=== PATIENT | female | born 1960 | race Caucasian/White ===

== ENCOUNTER → 2023-07-08 09:01 | Outpatient (CLI) | payer BC, SELFPAY ==
--- NOTE | ~2023-07-08 | MR_ITS ---
MRI of the lumbar spine Clinical History: Back pain Technique: Axial T2-weighted images, and sagittal T1-weighted, T2-weighted, and T2 fat-sat images wer e acquired. Findings: There is 12 mm anterolisthesis of L5 over S1, with severe degenerative change and possible partial fusion across the L5-S1 level disc space. There are underlying L5 pars interarticularis defec ts. No other fracture or subluxation seen. No suspicious bone marrow signal abnormality seen. At L1-L2 there is no disc bulge or herniation seen. No spinal canal stenosis or neural foraminal narr owing at these levels. At L2-L3, there is minimal disc bulge and mild facet hypertrophy. No spinal canal stenosis or neural foraminal narrowing. At L3-L4, there is no disc bulge or herniation. There is mild facet arthropathy. No spinal canal sten osis or neural foraminal narrowing. At L4-L5, there is diffuse disc bulge with advanced facet arthropathy. No ollie central canal stenosi s. There is moderate to advanced right neural foraminal narrowing and moderate left neural foraminal narrowing. At L5-S1, there is advanced spinal canal stenosis/thecal sac compression. There is probable severe bi lateral neural foraminal narrowing, right worse than left. Paravertebral soft tissues are unremarkable. Impression: 12 mm anterolisthesis of L5 over S1 with underlying L5 pars interarticularis defects. Advanced degenerative spondylosis at L4-L5 and L5-S1, as detailed above. Reviewed, dictated and finalized at [facility]. [employer]ER Impression: 12 mm anterolisthesis of L5 over S1 with underlying L5 pars interarticularis de fects. Advanced degenerative spondylosis at L4-L5 and L5-S1, as detailed above.
== END ==
PROVIDERS: PCP Nurse Practitioner Family; Visit Provider Nurse Practitioner Family
DX: M47.26 Other spondylosis with radiculopathy, lumbar region (principal); M54.6 Pain in thoracic spine
CPT/HCPCS: 72148

== ENCOUNTER → 2024-08-23 09:47 | Outpatient (CLI) | payer BC, SELFPAY ==
--- NOTE | ~2024-08-23 | XR_ITS ---
EXAMINATION: XR chest 2V Exam Date/Time: 08/23/2024 10:02 [employer] HISTORY: prod cough x 4 days non smoker Comparison: None. RESULT: Lines, tubes, and devices: None. Lungs and pleura: Clear. Cardiomediastinal silhouette: Unremarkable. Other: No acute osseous or upper abdominal finding. Atherosclerotic abdominal aortic calcifications without evident aneurysm. IMPRESSION: No acute cardiopulmonary process. Reviewed, dictated and finalized at location [facility] TO CHIP [facility]KER
== END ==
LOC: EXPCRAD 09:52
PROVIDERS: PCP Nurse Practitioner Family; Visit Provider Nurse Practitioner Family
DX: R05.9 Cough, unspecified (principal)
CPT/HCPCS: 71046

== ENCOUNTER 2025-07-03 07:30 | Emergency (ER) | payer BC, SELFPAY ==
--- OUTSIDE RECORDS SUMMARY | 2024-01-16 03:00 | XMS_ITS ---
Author Organization [facility] Address [address] [place] [address] Care Team Providers Care Copper Tapper Name Role Phone Migration, Provider Unavailable Unavailable REASON FOR VISIT EMR-Alexei Encounters Encounter Location Date Provider Diagnosis [facility] [address] [place] [address] 01/16/2024 Provider Migration Plan Of Treatment No Information Progress Notes * STARLA DannyeeDOB:1960 ([age] yo F)Acc No.[id number]:01/16/2024 Patient: Basia CHAPA :1960 A ge:63 Y S ex:Female Phone: Address:[address] [place], [address] Subjective: * Chief Complaints: * E MR-Alexei * * Date:
--- OUTSIDE RECORDS SUMMARY | 2024-01-17 03:00 | XMS_ITS ---
Author Organization [facility] Address [address] [place] [address] Care Team Providers Care Hospitality Director Name Role Phone Migration, Provider Unavailable Unavailable REASON FOR VISIT EMR-Alexei Encounters Encounter Location Date Provider Diagnosis [facility] [address] [place] [address] 01/17/2024 Provider Migration Plan Of Treatment No Information Progress Notes * STARLA DannyeeDOB:1960 ([age] yo F)Acc No.[id number]:01/17/2024 Patient: Basia CHAPA :1960 A ge:63 Y S ex:Female Phone: Address:[address] [place], [address] Subjective: * Chief Complaints: * E MR-Alexei * * Date:
--- NOTE | ~2025-07-03 | CT_ITS ---
Basia Vasquez EXAMINATION: CT abdomen pelvis w con COMPARISON: None HISTORY: upper abdominal pain TECHNIQUE: Axial images were obtained through the abdomen, pelvis post administration of IV contrast. Oral contrast was also administered. Coronal reconstruction images were obtained from the axial views. CT scan performed using dose optimization techniques including the following automated exposure control; adjustment of mA and/or kV; use of iterative reconstruction technique. Automatic exposure control was used to reduce radiation dose. Permanent radiation dose record is archived to PACS. FINDINGS: CT abdomen: LUNG BASES: The lung bases are clear. The visualized portions of the heart and pericardium are unremarkable. LIVER: Mild hepatic steatosis. SPLEEN: Unremarkable. KIDNEYS: Right Kidney: Unremarkable. No calculi. No hydronephrosis. Left Kidney: Left kidney midpole simple cyst 2 x 2 cm. ADRENAL GLANDS: Unremarkable. PANCREAS: Unremarkable. GALLBLADDER/BILIARY: Unremarkable. No biliary dilatation. STOMACH AND ESOPHAGUS: Visualized stomach and esophagus within normal limits. BOWEL/MESENTERY: No colitis or diverticulitis. Appendix not identified. Mesentery normal. Small bowel normal. ADENOPATHY/RETROPERITONEUM: No lymphadenopathy. AORTA/VASCULATURE: Normal caliber aorta. FREE FLUID OR FREE AIR: None. CT pelvis: SOLID ORGANS/REPRODUCTIVE: Unremarkable. BLADDER: Within normal limits. OSSEOUS STRUCTURES: Grade 1 anterolisthesis of L5 on S1 with bilateral spondylolytic defects. Fusion noted of the L5-S1 disc space. OVERLYING SOFT TISSUES: Unremarkable. IMPRESSION: 1. No etiology identified to explain the patient's symptoms. Follow-up suggested if symptoms persist. Reviewed, dictated and finalized at location P. ING STATION SUPERVISOR IMPRESSION: 1. No etiology identified to explain the patient's symptoms. Follow-up suggeste d if symptoms persist.
--- OUTSIDE RECORDS SUMMARY | 2025-07-03 07:32 | XMS_ITS | Encounter Summary ---
Author Organization [facility] Healthcare Address [address] [place] [id number] Care Team Providers Care Air Conditioning Manager Name Role Phone Sangeetha Mullins NP Primary Care Provider [phone] Reason for Visit * Reason Onset Date Comments Additional Services Or Orders 06/09/2025 Encounter Details Date Type Department Care Team (Late st Contact Info) Description 06/09/2025 Telephone [facility] Family Medicine [address] [place] [address] Sangeetha Mullins NP [address] [place] [address] Additional Services Or Orders Social History Tobacco Use Types Packs/Day Years Used Date Smoking Tobacco: Former Cigarettes Q uit: 09/13/2020 Smokeless Tobacco: Never PHQ-2 Answer Date Recorded PHQ-2 Total Score (If total score is 3 or more points, staff should administer the PHQ-9) 0 12/01/2024 Comments No Sex and Gender Information Value Date Recorded Sex Assigned at Not on file Legal Sex Female 8:52 AM CDT Gender Identity Not on file Sexual Orientation Not on file documented as of this encounter Miscellaneous Notes * Telephone Encounter - Natacha Evans LPN - 06/13/2025 8:39 AM CDT Patient made aware. * Telephone Encounter - Sybil Patricia MA - 06/13/2025 8:34 AM CDT Placing orders for [facility] * Telephone Encounter - Sangeetha Mullins NP - 06/13/2025 7:17 AM CDT Cbc, cmp, lipid, tsh, A1c, vit d please * Telephone Encounter - Yoly Broderick - 06/09/2025 12:38 PM CDT Additional Services or Orders Type of Service Requested:Labs Reason for Request (e.g. condition/symptom, date of COVID exposure if applicable): Preventative on 06/20/25 Details Regarding Additional Services (e.g. type of home health, type of equipment, type of test, etc.): Blood labs Where will services be performed? (if outside of the practice, facility name, address, phone/fax offacility): [facility] [address] , [place] [address] Additional Comments: None Does message need to be routed? Yes-Action Needed documented in this encounter Plan of Treatment Not on file documented as of this encounter Visit Diagnoses Not on filedocumented in this encounter Additional Health Concerns Infection Onset Date Last Indicated Resolved Time COVID: Suspected 06/28/2025 06/28/2025 06/28/2025 1:26 PM [employer]IC documented as of this encounter Care Teams Air Conditioning Manager Relationship Specialty Start Date End Date Sangeetha Mullins NP [address] [place] [address] PCP - General Internal Medicine 06/09/23 documented as of this encounter
--- OUTSIDE RECORDS SUMMARY | 2025-07-03 07:33 | XMS_ITS | Clinical Summary ---
Author Organization [facility] Address [address] [address] Phone Care Team Providers Care Dimensional Integration Engineer Name Role Phone Sangeetha Mullins NP Primary Care Provider [phone] Allergies Active Allergy Reactions Criticality Noted Date Comments Opioids - Morphine Analogues Other (See comments) Low 07/05/2024 vomiting Medications flunisolide (NASALIDE) 25 mcg (0.025 %) spray,non-aerosol 2 (two) times a day Active tiZANidine (ZANAFLEX) 4 mg tablet TAKE 1 TABLET(4MG)BY ORAL ROUTE AT BEDTIME 11/25/19 24 Active fluticasone propionate (FLONASE) 50 mcg/actuation nasal sprayIndications:S easonal allergies Administer 2 sprays into each nostril daily 3 each 4 12/24/19 24 Active fluticasone propion-salmeteroL (ADVAIR HFA) 230-21 mcg/actuation inhaler Inhale 2 puffs 2 (two) times a day Rinse mouth with water after use. Do not swallow. 1 each 1 04/05/20 24 Active ipratropium-albute roL (DUO-NEB) 0.5-2.5 mg/3 mL nebulizer solutionIndication s:Acute cough Take 3 mL by nebulization 4 (four) times a day as needed for wheezing or shortness of breath 90 mL 11 08/23/20 24 Active albuterol-budesoni de (Airsupra) 90-80 mcg/actuation HFA aerosol inhalerIndications :bronchospasm prevention with asthma Inhale 2 Inhalations 4 (four) times a day as needed (wheezing) 32.1 g 2 12/02/19 25 Active ibuprofen (ADVIL,MOTRIN) 800 mg tabletIndications: Chronic bilateral low back pain without sciatica Take 1 tablet (800 mg total) by mouth nightly 90 tablet 1 12/02/19 25 Active levocetirizine (XYZAL) 5 mg tabletIndications: Allergic Rhinitis Take 1 tablet (5 mg total) by mouth daily 100 tablet 1 12/02/19 25 Active fluticasone propion-salmeteroL (ADVAIR DISKUS) 250-50 mcg/dose diskus inhalerIndications :Moderate persistent asthma without complication INHALE 1 PUFF 2 TIMES A DAY RINSE MOUTH WITH WATER AFTER USE. DO NOT SWALLOW. 180 each 1 03/03/[address] (PROTONIX) 40 mg EC tabletIndications: Gastroesophageal reflux disease without esophagitis TAKE 1 TABLET BY MOUTH EVERY DAY 90 tablet 1 03/10/20 25 Active metoprolol XL (TOPROL-XL) 50 mg extended release tabletIndications: Hypertension, essential TAKE 1 TABLET BY MOUTH EVERY DAY 90 tablet 1 03/10/20 25 Active simvastatin (ZOCOR) 40 mg tabletIndications: Mixed hyperlipidemia TAKE 1 TABLET BY MOUTH EVERY DAY AT NIGHT 90 tablet 1 03/10/20 25 Active montelukast (SINGULAIR) 10 mg tabletIndications: Seasonal allergies TAKE 1 TABLET BY MOUTH EVERY DAY AT NIGHT 90 tablet 1 03/10/20 25 Active levothyroxine (SYNTHROID) 125 mcg tabletIndications: Acquired hypothyroidism Take 1 tablet (125 mcg total) by mouth daily 90 tablet 4 06/28/20 25 Active predniSONE (DELTASONE) 10 mg tabletIndications: Acute cough Take 1 tablet (10 mg) by mouth 4 (four) times a day for 5 days 20 tablet 06/28/20 25 025 Active levothyroxine (SYNTHROID) 75 mcg tabletIndications: Acquired hypothyroidism TAKE 1 TABLET (75 MCG TOTAL) BY MOUTH LENS GENERATOR BEFORE BREAKFAST 90 tablet 1 03/10/20 25 025 Discontin ued(Alter cha therapy) Active Problems Problem Noted Date Diagnosed Date Gastroesophageal reflux disease without esophagi tis 12/01/2024 Overview (12/01/2024): Continue Protonix as directed. Monitor dietary intake Acute cough 08/23/2024 Cervical cancer screening 01/15/2024 Seasonal allergies 01/05/2024 Overview (01/05/2024): Use Flonase 1 spray twice daily as directed. Singulair and Xyzal as directed Right wrist pain 01/05/2024 Overview (01/05/2024): Use referral to see hand for evaluation of right wrist pain and possible carpal tunnel BMI 29.0-29.9,adult 06/09/2023 Encounter for vaccination 06/09/2023 Hypertension, essential 06/09/2023 Mixed hyperlipidemia 06/09/2023 Chronic pain of both knees 06/09/2023 Moderate persistent asthma without complication 06/09/2023 Acquired hypothyroidism 06/09/2023 Encounters Date Type Department Care Team Description 06/30/2025 Nurse Triage [address] [place] [phone] Sangeetha Mullins NP 06/28/2025 1:00 PM METAL FABRICATOR APPRENTICE Office Visit [address] [place] [address] Sangeetha Mullins NP Acute cough (Primary Dx); BMI 29.0-29.9,adult; Acquired hypothyroidism 06/13/2025 Orders Only [address] [place] [phone] Sangeetha Mullins NP Mixed hyperlipidemia (Primary Dx); Hypertension, essential; Acquired hypothyroidism; Other fatigue; Annual physical exam; Screening for diabetes mellitus 06/09/[address] [place] [phone] Sangeetha Mullins NP Additional Services Or Orders from Last 3 Months Immunizations Immunization Administration Dates Next Due Influenza, Quadrivalent, Spl it, Preservative Free, Intramuscular 06/09/2023 Influenza, Trivalent, Preser vative Free, Intramuscular 07/05/2024 Influenza, Unspecified 06/20/2025,2022(Deferred: Patient Refused),08/24/2022(Deferred: Patient Refused) ZOSTER Recombinant 12/01/2024 Surgical History Surgery Date Site/Laterality Comments BACK SURGERY APPENDECTOMY CARPAL TUNNEL RELEASE THUMB SURGERY Medical History Medical History Date Comments Chronic back pain Hypertension Asthma Hyperlipidemia Allergic Thyroid disease Family History Medical History Relation Name Comments Leukemia Father Hypertension Mother Relation Name Status Comments Father Mother Alive Social History Tobacco Use Types Packs/Day Years Used Date Smoking Tobacco: Former Cigarettes Q uit: 09/13/2020 Smokeless Tobacco: Never Tobacco Cessation:Counseling Given: Not Answered Alcohol Use Standard Drinks/Week Comments Yes 0 (1 standard drink = 0.6 oz pur e alcohol) PHQ-2 Answer Date Recorded PHQ-2 Total Score (If total score is 3 or more points, staff should administer the PHQ-9) 0 06/28/2025 AUDIT-C Answer Date Recorded Q1: How often do you have a drink containing alc ohol? Monthly or less 06/28/2025 Q2: How many drinks containi ng alcohol do you have on a typical day when you are drinking? 1 or 2 06/28/2025 Q3: How often do you have si x or more drinks on one occasion? Never 06/28/2025 Comments No Sex and Gender Information Value Date Recorded Sex Assigned at Not on file Legal Sex Female 8:52 AM CDT Gender Identity Not on file Sexual Orientation Not on file Obstetrics History Para Term AB IAB SAB Ectopic Multiple Livin g Live Births 0 0 0 0 0 0 0 0 0 0 0 Last Filed Vital Signs Vital Sign Reading Time Taken Comments Blood Pressure 136/84 06/28/2025 1:14 PM METAL FABRICATOR APPRENTICE Pulse 76 06/28/2025 1:14 PM METAL FABRICATOR APPRENTICE Temperature 36.7 C (98.1 F) 06/28/2025 1:14 PM METAL FABRICATOR APPRENTICE Respiratory Rate - - Oxygen Saturation 97% 06/28/2025 1:14 PM METAL FABRICATOR APPRENTICE Inhaled Oxygen Concentration - - Weight 67.1 kg (148 lb) 06/28/2025 1:14 PM METAL FABRICATOR APPRENTICE Height 149.9 cm (4' 11) 06/28/2025 1:14 PM METAL FABRICATOR APPRENTICE Body Mass Index 29.89 06/28/2025 1:14 PM METAL FABRICATOR APPRENTICE Plan of Treatment Health Maintenance Due Date Last Done Comments Hepatitis C Screening 1961 DTaP/Tdap/Td Vaccine (1 - Tdap) 1972 Hepatitis B Screening 1979 Pneumococcal vaccine <65 (1 of 2 - PCV) 1980 Cervical Cancer Screening 01/14/2025 01/15/2024 Regular Well Visit/Exam 18-64 01/14/2025 01/15/2024, 12/23/2023 Zoster Vaccine (2 of 2) 01/26/2025 12/01/2024 Breast Cancer Screening-Mammogram 10/26/2025 025 Colon Cancer Screening-DNA Stool 06/23/2026 06/23/20 23 Depression Screening 06/28/2026 06/28/2025, 12/01/2024, 08/23/2024, Additional history exists Influenza Vaccine Completed 06/20/2025, , 06/09/2023 Procedures Procedure Name Priority Date/Time Associated Diagnosis Comments POC INFLUENZA A/B, COVID-19 ANTIGEN Routine 06/28/2025 1:24 PM METAL FABRICATOR APPRENTICE Acute cough VITAMIN D 25 HYDROXY Routine 06/22/2025 7:32 AM CDT Other fatigue Annual physical exam HEMOGLOBIN A1C Routine 06/22/2025 7:29 AM CDT Annual physical exam Screening for diabetes mellitus TSH Routine 06/22/2025 7:29 AM CDT Acquired hypothyroidism Annual physical exam LIPID PANEL Routine 06/22/2025 7:29 AM CDT Mixed hyperlipidemia Annual physical exam COMPREHENSIVE METABOLIC PANEL Routine 06/22/2025 7:29 AM CDT Hypertension, essential Annual physical exam CBC WITH AUTO DIFFERENTIAL Routine 06/22/2025 7:29 AM CDT Hypertension, essential Annual physical exam SCREENING MAMMOGRAM BILATERAL W JERALD Schedule Routine, Read Routine (OP Routine) 10/26/2024 8:44 AM METAL FABRICATOR APPRENTICE Breast cancer screening by mammogram PAP AND HPV, REFLEX TO HPV GENOTYPES Routine 01/15/2024 9:40 AM CDT Cervical cancer screening STOOL DNA COLOGUARD Routine 06/23/2023 5:30 AM CDT Screening for colon cancer from Last 3 Months or Most Recently Relevant to Health Maintenance Results * POC Influenza A/B, COVID-19 antigen (06/28/2025 1:24 PM METAL FABRICATOR APPRENTICE) Pathologist [facility] Influenza A Ag, POC Negative Negative [facility] Influenza B Ag, POC Negative Negative [facility] COVID-19 Ag POC Presumptive Negative Presumptive Negative, Invalid [facility] Nasal 06/28/2025 1:24 PM METAL FABRICATOR APPRENTICE us Sangeetha Mullins INDUSTRIAL MAINTENANCE ELECTRICIAN POINT OF CARE TEST ORDERABLES Final Result [facility] [address] [place] [address] * Vitamin D 25 hydroxy (06/22/2025 7:32 AM CDT) Pathologist [facility] Vitamin D 25-OH 47 30 - 100 ng/mL [facility] Comment: Vitamin D Status 25-OH Vitamin D: Deficiency: <20 ng/mL Insufficiency: 20 - 29 ng/mL Optimal: > or = 30 ng/mL For 25-OH Vitamin D testing on patients on D2-supplementation and patients for whom quantitation of D2 and D3 fractions is required, the [facility]() 25-OH VIT D, (D2,D3), LC/MS/MS is recommended: order code [id number] (patients >2yrs). See Note 1 Note 1 For additional information, please refer to http://education.Tunaspot.Biosyntech/faq/ZJC685 (This link is being provided for informational/ educational purposes only.) Blood 06/22/2025 7:32 AM CDT 06/22/2025 7:33 AM CDT Narrative [facility] - 06/23/2025 12:07 PM CDT FASTING:YES FASTING: YES us Sangeetha Mullins INDUSTRIAL MAINTENANCE ELECTRICIAN LAB BLOOD ORDERABLES Final Re sult [facility] [address] [address] * (ABNORMAL) CBC with auto differential (06/22/2025 7:29 AM CDT) WBC 5.2 3.8 - 10.8 Thousand/u L [facility] RBC, POC 4.85 3.80 - 5.10 Million/uL [facility] Hgb 14.2 11.7 - 15.5 g/dL [facility] Hct 44.9 35.0 - 45.0 % [facility] MCV 92.6 80.0 - 100.0 fL [facility] MCH 29.3 27.0 - 33.0 pg [facility] MCHC 31.6(L) 32.0 - 36.0 g/dL [facility] Comment: For adults, a slight decrease in the calculated MCHC value (in the range of 30 to 32 g/dL) is most likely not clinically significant; however, it should be interpreted with caution in correlation with other red cell parameters and the patient's clinical condition. Rdw 12.3 11.0 - 15.0 % [facility] Platelets 307 140 - 400 Thousand/u L [facility] MPV 10.1 7.5 - 12.5 fL [facility] Neutrophils, abs 2,543 1,500 - 7,800 cells/uL [facility] Lymphocytes, abs 2,044 850 - 3,900 cells/uL [facility] Monocyte abs 432 200 - 950 cells/uL [facility] Eosinophils, abs 140 15 - 500 cells/uL [facility] Basophils, abs 42 0 - 200 cells/uL [facility] Neutrophils 48.9 % [facility] Lymphocyte pct 39.3 % [facility] Monocytes 8.3 % [facility] Eosinophils 2.7 % [facility] Basophils 0.8 % [facility] Blood 06/22/2025 7:29 AM CDT 06/22/2025 7:31 AM CDT Narrative [facility] - 06/22/2025 8:31 PM CDT FASTING:YES FASTING: YES Result Bryant Mullins INDUSTRIAL MAINTENANCE ELECTRICIAN LAB BLOOD ORDERABLES Final Re sult Performing Organization Address [facility] Co de Phone Number [facility] [address] [place] [address] * (ABNORMAL) TSH (06/22/2025 7:29 AM CDT) Pathologist [facility] TSH 16.46(H) 0.40 - 4.50 mIU/L [facility] Blood 06/22/2025 7:29 AM CDT 06/22/2025 7:31 AM CDT Narrative [facility] - 06/22/2025 8:31 PM CDT FASTING:YES FASTING: YES Result Bryant Mullins INDUSTRIAL MAINTENANCE ELECTRICIAN LAB BLOOD ORDERABLES Final Re sult Performing Organization Address [facility] de Phone Number [facility] [address] [place] [address] * (ABNORMAL) Hemoglobin A1c (06/22/2025 7:29 AM CDT) Pathologist [facility] Hgb A1C 5.9(H) <5.7 % of total Hgb [facility] Comment: For someone without known diabetes, a hemoglobin A1c value between 5.7% and 6.4% is consistent with prediabetes and should be confirmed with a follow-up test. For someone with known diabetes, a value <7% indicates that their diabetes is well controlled. A1c targets should be individualized based on duration of diabetes, age, comorbid conditions, and other considerations. This assay result is consistent with an increased risk of diabetes. Currently, no consensus exists regarding use of hemoglobin A1c for diagnosis of diabetes for children. Blood 06/22/2025 7:29 AM CDT 06/22/2025 7:31 AM CDT Narrative [facility] - 06/22/2025 8:31 PM CDT FASTING:YES FASTING: YES Result Bryant Mullins INDUSTRIAL MAINTENANCE ELECTRICIAN LAB BLOOD ORDERABLES Final Re sult Performing Organization Address [facility] Co de Phone Number [facility] [address] [place] [address] * (ABNORMAL) Lipid panel (06/22/2025 7:29 AM CDT) Cholesterol 223(H) <200 mg/dL [facility]Vishal Thornton HDL 61 > OR = 50 mg/dL [facility] Triglycerides 227(H) <150 mg/dL [facility] CybersecurityJanineS linda Thornton Comment: If a non-fasting specimen was collected, consider repeat triglyceride testing on a fasting specimen if clinically indicated. Tiffanie et al. J. of Clin. Lipidol. 2015;9:129-169. LDL 125(H) mg/dL (calc) Yvonne FantaJanineJoseph linda Thornton Comment: Reference range: <100 Desirable range <100 mg/dL for primary prevention; <70 mg/dL for patients with CHD or diabetic patients with > or = 2 CHD risk factors. LDL-C is now calculated using the Rhys-Boris calculation, which is a validated novel method providing better accuracy than the Friedewald equation in the estimation of LDL-C. Rhys PEREZ et al. SHMUEL. 2013;310(19): 5592-9917 (http://education.Radisphere Radiology/faq/YIU963) Chol/HDL ratio 3.7 <5.0 (calc) [facility]-Joseph linda Thornton Non-HDL, (LDL+VLDL) 162(H) <130 mg/dL (calc) [facility]vonne [facility] KateS linda Thornton Comment: For patients with diabetes plus 1 major ASCVD risk factor, treating to a non-HDL-C goal of <100 mg/dL (LDL-C of <70 mg/dL) is considered a therapeutic option. Blood 06/22/2025 7:29 AM CDT 06/22/2025 7:31 AM CDT Narrative [facility] - 06/22/2025 8:31 PM CDT FASTING:YES FASTING: YES Sangeetha Mullins INDUSTRIAL MAINTENANCE ELECTRICIAN LAB BLOOD ORDERABLES Final Re sult Performing Organization Address [facility] Co de Phone Number YVONNE [facility] [address] [place] [address] * Comprehensive metabolic panel (06/22/2025 7:29 AM CDT) Pathologist [facility] Glucose 87 65 - 99 mg/dL [facility] KateJoseph mckeon [place] Comment: Fasting reference interval BUN 12 7 - 25 mg/dL Yvonne FantaJanineJoseph Thornton Creatinine 0.78 0.50 - 1.05 mg/dL Yvonne MSB CybersecurityJanineJoseph Thornton eGFR 85 > OR = 60 mL/min/1.7 3m2 [facility] KateJoseph mckeon [place] BUN/creat ratio SEE NOTE: 6 - 22 (calc) [facility] MS[facility] CybersecurityJanineJoseph mckeon [place] Comment: Not Reported: BUN and Creatinine are within reference range. Sodium 139 135 - 146 mmol/L Yvonne MSB CybersecurityJoseph Thornton Potassium, pl 4.5 3.5 - 5.3 mmol/L Yvonne FantaJanineJoseph Thornton Chloride 105 98 - 110 mmol/L Yvonne FantaMeet.comJoseph Thornton CO2 29 20 - 32 mmol/L [facility] [employer]-Joseph Thornton Calcium 9.3 8.6 - 10.4 mg/dL Yvonne MSB CybersecurityJoseph Thornton Protein, sr 6.9 6.1 - 8.1 g/dL Yvonne FantaJoseph Thornton Albumin 4.5 3.6 - 5.1 g/dL [facility] [employer] [employer]Joseph Thornton GLOBULIN 2.4 1.9 - 3.7 g/dL (calc) Yvonne Fanta-Joseph Thornton Alb/glob ratio 1.9 1.0 - 2.5 (calc) Yvonne Studio KateJoseph Thornton Bilirubin, total 0.5 0.2 - 1.2 mg/dL [facility] [employer]Joseph Thornton Alk phos 85 37 - 153 U/L Yvonne MSB CybersecurityJoseph mckeon [place] AST 17 10 - 35 U/L Yvonne MSB CybersecurityJoseph Thornton ALT (SGPT) 17 6 - 29 U/L Yvonne Studio KateJoseph Thornton Blood 06/22/2025 7:29 AM CDT 06/22/2025 7:31 AM CDT Narrative [facility] - 06/22/2025 8:31 PM CDT FASTING:YES FASTING: YES us Sangeetha Mullins NP LAB BLOOD ORDERABLES Final Re sult [facility] [address] [place] [address] * Screening Mammogram Bilateral W Jerald (10/26/2024 8:44 AM METAL FABRICATOR APPRENTICE) Anatomical Region Laterality Modality Breast Bilateral Mammography Impressions 11/09/2024 2:55 PM CDT BI-RADS ATLAS category (overall): 1 - Negative There is no mammographic evidence of malignancy. A 1 year screening mammogram is recommended. The patient has been or will be contacted. We recommend annual screening mammography for women at average risk of breast cancer beginning at age 40, based on guidelines of the [place] [employer] (ACR Practice Parameter for the Performance of Screening and Diagnostic Mammography) and [place] [employer]. For women with and elevated risk of breast cancer, please refer to the ACR Practice Parameter for specific screening recommendations. The patient will be entered into a reminder system with a target due date of 1 year for her next screening exam. Narrative 11/09/2024 2:55 PM CDT Screening Mammogram Bilateral W Jerald: 10/26/24 The study was acquired using full field digital technology and interpreted from soft copy. 2D digital mammographic views, as well as 3D digital tomosynthesis were performed in the CC and MLO projections. This study was resulted using Computer-Aided Detection (CAD). CLINICAL: Breast cancer screening by mammogram (Schedule and complete mammogram as you are due). No relevant medical history has been documented for this patient. No known family history of breast cancer. No comparisons were made when reading this study. BREAST TISSUE: There are scattered areas of fibroglandular density. FINDINGS: No suspicious masses, suspicious calcifications, or other suspicious findings are seen within either breast. Sangeetha Mullins NP IMG MAMMO PROCEDURES Final Re sult * Pap and HPV, reflex to HPV Genotypes (01/15/2024 9:40 AM CDT) CLINICAL INFORMATION: [facility] Comment:Postmenopausal L[facility] Comment:POST MELISSA Previous Pap [facility] Comment:PREV NEG Prev. Bx [facility] Comment:None given SOURCE: [facility] Comment:Cervix, Endocervix Pap, specimen adequacy [facility] Comment: Satisfactory for evaluation. Endocervical/transformation zone component absent. HPV interp [facility] Comment: Cytology Results: Negative for intraepithelial lesion or malignancy. Infection: [facility] Comment: Shift in vaginal laisha suggestive of bacterial vaginosis. COMMENTS [facility] Comment: This Pap test has been evaluated with computer assisted technology. Homeland Security Program Specialist [facility] Comment: BKA, CT(ASCP) CT screening location: [place] [address] [address] [place] [address] Comment [facility] Comment: EXPLANATORY NOTE: The Pap is a screening test for cervical cancer. It is not a diagnostic test and is subject to false negative and false positive results. It is most reliable when a satisfactory sample, regularly obtained, is submitted with relevant clinical findings and history, and when the Pap result is evaluated along with historic and current clinical information. Human papillomavirus DNA, High Risk E6/E7 Not Detected NOT DETECTED [facility]Kaitlin [facility] Comment: Not Detected High Risk HPV types (16,18,31,33,35,39,45,51,52, 56,58,59,66,68) were not detected. Other HPV types which cause anogenital lesions may be present. The significance of the other types of HPV in malignant processes has not been established. Methodology: Real Time PCR Thin prep 01/15/2024 9:40 AM CDT 01/16/2024 2:38 AM CDT Sangeetha Mullins INDUSTRIAL MAINTENANCE ELECTRICIAN LAB CYTOLOGY ORDERABLES Final Result [facility] [address] [place] [address] [facility] [address] [facility] NADIYA [place] [address] * Stool DNA - Cologuard (06/23/2023 5:30 AM CDT) Stool DNA - Cologuard Negative Negative [employer] (CLIA #:[id number]) Comment: NEGATIVE TEST RESULT. A negative Cologuard result indicates a low likelihood that a colorectal cancer (CRC) or advanced adenoma (adenomatous polyps with more advanced pre-malignant features) is present. The chance that a person with a negative Cologuard test has a colorectal cancer is less than 1 in 1500 (negative predictive value >99.9%) or has an advanced adenoma is less than 5.3% (negative predictive value 94.7%). These data are based on a prospective cross-sectional study of 10,000 individuals at average risk for colorectal cancer who were screened with both Cologuard and colonoscopy. (Kendra Coelho et al, N Engl J Med 2014;370(14):2685-2192) The normal value (reference range) for this assay is negative. COLOGUARD RE-SCREENING RECOMMENDATION: Periodic colorectal cancer screening is an important part of preventive healthcare for asymptomatic individuals at average risk for colorectal cancer. Following a negative Cologuard result, the [place] [employer] and U.S. Multi-Society Task Force screening guidelines recommend a Cologuard re-screening interval of 3 years. References: [place] [employer] Guideline for Colorectal Cancer Screening: https://www.cancer.org/cancer/jmrjo-stdfwu-qzltmy/utjzuflwl-qdekktrng-dlilbaj/ac s-rec ommendations.html.; Everett DK, Raul CR, Lebron SinghK, Colorectal Cancer Screening: Recommendations for Physicians and Patients from the U.S. Multi-Society Task Force on Colorectal Cancer Screening , Am J Gastroenterology 2017; 112:3239-5554. TEST DESCRIPTION: Composite algorithmic analysis of stool DNA-biomarkers with hemoglobin immunoassay. Quantitative values of individual biomarkers are not reportable and are not associated with individual biomarker result reference ranges. Cologuard is intended for colorectal cancer screening of adults of either sex, 45 years or older, who are at average-risk for colorectal cancer (CRC). Cologuard has been approved for use by the U.S. FDA. The performance of Cologuard was established in a cross sectional study of average-risk adults aged 50-84. Cologuard performance in patients ages 45 to 49 years was estimated by sub-group analysis of near-age groups. Colonoscopies performed for a positive result may find as the most clinically significant lesion: colorectal cancer [4.0%], advanced adenoma (including sessile serrated polyps greater than or equal to 1cm diameter) [20%] or non- advanced adenoma [31%]; or no colorectal neoplasia [45%]. These estimates are derived from a prospective cross-sectional screening study of 10,000 individuals at average risk for colorectal cancer who were screened with both Cologuard and colonoscopy. (Kendra Farris al, N Engl J Med 2014;370(14):4549-9984.) Cologuard may produce a false negative or false positive result (no colorectal cancer or precancerous polyp present at colonoscopy follow up). A negative Cologuard test result does not guarantee the absence of CRC or advanced adenoma (pre-cancer). The current Cologuard screening interval is every 3 years. ([place] [employer] and [place].S. Multi-Society Task Force). Cologuard performance data in a 10,000 patient pivotal study using colonoscopy as the reference method can be accessed at the following location: [email or web address]/results. Additional description of the Cologuard test process, warnings and precautions can be found at [email or web address]. Stool 06/23/2023 5:30 AM CDT 07/21/2023 11:30 AM METAL FABRICATOR APPRENTICE us Sangeetha Mullins NP LAB BODY FLUIDS AND STOOLS OR DERABLES Final Result [employer] (CLIA #:[id number]) [address] [place] [address] from Last 3 Months or Most Recently Relevant to [place] [address] [place] [address] [employer] Care Teams Dimensional Integration Engineer Relationship Specialty Start Date End Date Sangeetha Mullins NP [address] [place] [address] PCP - General Internal Medicine 06/09/23
--- OUTSIDE RECORDS SUMMARY | 2025-07-03 07:33 | XMS_ITS | Patient Health Record ---
Author Organization [facility] Address [address] [place] [address] Support Name Relationship Address Phone Basia Vasquez Guarantor Unknown Unavailable Reason For Referral No Information Problems Problem Type SNOMED Code ICD Code Onset Dates Problem Status W/U Status Risk Notes Problem Lumbar spinal fusion (procedure) (38821017) Fusion of spine, lumbar region (M43.26) 03/04/20 22 Active confirmed Problem Lumbosacral spondylosis without myelopathy (22314545) Other spondylosis with radiculopathy, lumbar region (M47.26) 09/21/19 21 Active confirmed Problem Degeneration of lumbar intervertebral disc (53024294) Other intervertebral disc degeneration, lumbar region (M51.36) 09/21/19 21 Active confirmed Problem Sacrococcygeal disorders, not elsewhere classified (M53.3) 03/22/20 20 Active confirmed Problem Spasm (26021096) Other muscle sp asm (M62.838) 04/01/20 19 Active confirmed Problem Post-laminectomy syndrome (72950915) Postlaminectomy syndrome, not elsewhere classified (M96.1) 06/13/20 22 Active confirmed Problem Neurogenic claudication (118285802) Spinal stenosis, lumbar region with neurogenic claudication (M48.062) 10/03/19 22 Active confirmed Plan Of Treatment No Information Insurance Providers Payer Name Payer Address Payer Phone Subscriber Number Group Number Insured Name Patient Relationship to Insured Coverage Start Date Coverage End Date [facility] [address] [address] [place] [address] [id number] Basia Vasquez Self - patient is the insured 9
--- OUTSIDE RECORDS SUMMARY | 2025-07-03 07:33 | XMS_ITS | Patient Health Record ---
Author Organization [facility] Address [address] [place] [address] Support Name Relationship Address Phone Basia Vasquez Guarantor Unknown [phone] Reason For Referral No Information Medications Medication SIG (Take, Route, Frequency, Duration) Notes Start Date End Date Status Simvastatin 20 MG Tablet 1 Oral daily; Duration: -3 11/17/2018 Active Pantoprazole Sodium 40 MG Tablet Delayed Release 1 Oral daily; Duration: -3 11/17/2018 Active Albuterol Sulfate (2.5 MG/3ML) 0.083% Nebulization Solution 1 Inhalation every 6 hours; Duration: -3 11/17/2018 Active NexIUM 20MG Caps DR 1 ORAL daily; Duration: -3 *Pick strength-form from [employer] for eRX* 11/17/2018 Active Levothyroxine Sodium 50 MCG Tablet 1 ORAL daily; Duration: -3 11/17/2018 Active Advair Diskus 100-50MCG/DOSE Aerosol Powder, breath activated 1 puff Inhalation twice daily; Duration: -3 *Pick strength-form from [employer] for eRX* 11/17/2018 Active Social History Social History Additional Details Category Social Info Options Details Migrated Social History Migrated Social History Smoking : Current some day smoker , Recorded Date: 11/17/2018 Problems Problem Type SNOMED Code ICD Code Onset Dates Problem Status W/U Status Risk Notes Problem Acquired spondylolisthesis (850070873) Spondylolisthesis , site unspecified (M43.10) 019 Active confirmed Problem Lumbar spinal fusion (procedure) (20817794) Fusion of spine, lumbar region (M43.26) 019 Active confirmed Problem Degeneration of lumbar intervertebral disc (97766020) Other intervertebral disc degeneration, lumbar region (M51.36) 019 Active confirmed Problem Low back pain (817494264) Low back pain (M54.5) 019 Active confirmed Plan Of Treatment No Information Insurance Providers Payer Name Payer Address Payer Phone Subscriber Number Group Number Insured Name Patient Relationship to Insured Coverage Start Date [facility] [address] [address] [place], [place] [id number] Basia Vasquez Other 5
[2025-07-03 07:34] VITALS: BP 120/94; PULSE 79; RESP 20; TEMP 36.4; O2SAT 99
[2025-07-03 07:59] LABS: Hematocrit 47.3 % (37.0-47.0); Hemoglobin 14.9 g/dL (12.0-15.0); Immature Granulocyte Percent A 1.6 % (0-0.5); Lymphocytes Absolute Auto 2.31 K/mm3 (0.9-3.2); Mean Corpuscular HGB Conc 31.5 g/dl (32-36); Mean Corpuscular Hemoglobin 28.7 pg (26-34); Mean Corpuscular Volume 91.1 fl (80-100); Nucleated Red Blood Cells Absolute Auto 0.000 K/mm3 (0.0-0.012); Nucleated Red Blood Cells Perc 0.0 % (0.0-0.2); Platelet Count Result 332 k/mm3 (150-375); Red Blood Count 5.19 M/mm3 (4.2-5.4); White Blood Count 9.6 K/mm3 (4.5-10.0)
--- NOTE | 2025-07-03 08:04 | ECG_ITS ---
Test Date: 2025-07-03 08:01:38 Measurements Intervals Dodge Rate: 83 P: 13 GA: 162 QRS: -1 QRSD: 78 T: 35 QT: 370 QTc: 436 Interpretive Statements SINUS RHYTHM Nonspecific ST-T changes No previous ECG available for comparison Electronically Signed On 07-04-2025 10:45:47 SENIOR MANAGING DIRECTOR by Dylon Valverde M.D.
[2025-07-03 08:05] LABS: Add Urine Microscopic? YES; Appearance Urine Cloudy (Clear); Glucose Urine UA Negative (Negative); Leukocyte Esterase Ur Trace LEU/UL (Negative); Nitrate Urine Negative (Negative); Non Pathogenic Casts 0-2; Specific Grav Ur 1.029 (1.001-1.035)
[2025-07-03 08:16] LABS: Alanine Aminotransferase 18 U/L (6-35); Albumin Level 4.3 g/dL (3.5-5.1); Alkaline Phosphatase 123 U/L (38-126); Anion Gap 7 mmol/L (4-12); Aspartate Amino Transferase 35 U/L (14-36); Bilirubin,Total 0.8 mg/dL (0.2-1.3); Blood Urea Nitrogen 19 mg/dL (7-17); Calcium 8.7 mg/dL (8.4-10.2); Carbon Dioxide 30 mmol/L (22-30); Chloride 102 mmol/L (98-107); Estimated CRCL calculation 53 ml/min; Estimated Glomerular Filt Rate > 60; Glucose 98 mg/dL (65-110); Lipase 203 U/L (23-300); Potassium 3.5 mmol/L (3.4-5.0); Sodium 139 mmol/L (137-145); Total Protein 7.7 g/dL (6.3-8.2)
--- NOTE | 2025-07-03 08:21 | ED_ITS ---
HPI - General Adult General Chief complaint: Abdominal Pain Stated complaint: abd pain Time Seen by Provider: 07/03/25 07:40 History of Present Illness HPI narrative: 64-year-old female presenting to the emergency department for evaluation for abdominal pain for the last 3 days. Patient did have a change in her levothyroxine where she went from 75 to 125. Patient states this was causing intense abdominal cramping. Patient states the cramping has been persistent for the last 3 days. Patient describes cramping from epigastrium to the left upper quadrant. Patient did have some nausea associated. Patient was also having some issues with constipation but reports that she did have 3 large bowel movements today. Patient does have a history of GERD and does take pantoprazole. Related Data Allergies Allergy/AdvReac Type Severity Reaction Status Date / Time Rodney And Derivatives AdvReac Nausea and Verified 07/03/25 08:40 Vomiting Opioids - Morphine Analogues AdvReac Nausea and Verified 07/03/25 08:40 Vomiting Review of Systems 2 Review of Systems: All systems reviewed & are unremarkable except as noted in HPI and below Exam 2 Narrative: APPEARANCE: uncomfortable appearing HEAD: normocephalic, atraumatic. EYES: PERRLA/EOMI, conjunctivae clear. NOSE: Normal no drainage EARS:TMS clear with good light reflex. THROAT: Pharynx clear, no exudate. NECK: Supple. No adenopathy, no masses. RESPIRATORY: Airway patent, respirations nonlabored. Clear to auscultation bilaterally, no rales, rhonchi, wheezing. CARDIOVASCULAR: Regular rate and rhythm without murmurs rubs or gallops. ABDOMINAL: epigastric and left upper quadrant tenderness, normal bowel sounds MUSCULOSKELETAL: Moves all extremities. Strength/ROM intact, No edema, No calf tenderness. NEURO: Alert. Cranial nerves II through XII intact. Good gait. Good coordination SKIN: Warm, dry. Normal Color Course Vital Signs Vital signs: Vital Signs Temperature 97.6 F 07/03/25 07:34 Pulse Rate 79 07/03/25 07:34 Respiratory Rate 20 07/03/25 07:34 Blood Pressure 120/94 H 07/03/25 07:34 Pulse Oximetry 99 07/03/25 07:34 Oxygen Delivery Room Air 07/03/25 07:34 Temperature 97.6 F 07/03/25 07:34 Pulse Rate 63 07/03/25 10:28 Respiratory Rate 18 07/03/25 10:28 Blood Pressure 106/74 07/03/25 10:28 Pulse Oximetry 97 07/03/25 10:28 Oxygen Delivery Room Air 07/03/25 07:34 Medical Decision Making MDM Narrative Medical decision making narrative: 64-year-old female presents emergency department for evaluation for upper abdominal pain that was worsened after increasing her levothyroxine dose. Patient is currently afebrile no leukocytosis with a hemoglobin of 14.9. Patient has no significant acute abnormalities on her CMP including normal AST ALT T bili lipase and alk-phos. Patient's symptoms were improved with GI cocktail. CT scan shows no acute abdominal pathology. Do suspect patient is having worsening GERD symptoms. Patient does already take pantoprazole. Patient has had previous follow-up with GI. Patient was advised to decrease her ibuprofen dosing, decrease any acidic foods, continue her pantoprazole and to take Maalox as needed for intermittent worsening symptoms. Patient was also encouraged close follow-up with GI. All questions concerns were addressed patient was well-appearing at time of discharge Differential Diagnosis Differential Diagnosis: Gastritis, duodenitis, GERD, esophagitis, colitis, diverticulitis, pancreatitis Vital Signs Vital Signs: Vital Signs Temperature 97.6 F 07/03/25 07:34 Pulse Rate 79 07/03/25 07:34 Respiratory Rate 20 07/03/25 07:34 Blood Pressure 120/94 H 07/03/25 07:34 Pulse Oximetry 99 07/03/25 07:34 Oxygen Delivery Room Air 07/03/25 07:34 Temperature 97.6 F 07/03/25 07:34 Pulse Rate 63 07/03/25 10:28 Respiratory Rate 18 07/03/25 10:28 Blood Pressure 106/74 07/03/25 10:28 Pulse Oximetry 97 07/03/25 10:28 Oxygen Delivery Room Air 07/03/25 07:34 Lab Data Lab results reviewed: Yes I reviewed the patient's lab results. 07/03/25 07:47 07/03/25 07:47 Labs: Lab Results 07/03/25 Range/Units 07:47 WBC 9.6 (4.5-10.0) K/mm3 RBC 5.19 (4.2-5.4) M/mm3 Hgb 14.9 (12.0-15.0) g/dL Hct 47.3 H (37.0-47.0) % MCV 91.1 (80-100) fl MCH 28.7 (26-34) pg MCHC 31.5 L (32-36) g/dl RDW 13.3 (11.5-14.5) % Plt Count 332 (150-375) k/mm3 MPV 9.0 (7.4-10.4) fl Immature Gran % (Auto) 1.6 H (0-0.5) % Neut % (Auto) 63.4 (45.5-73.1) % Lymph % (Auto) 24.1 (18.3-44.2) % Maries % (Auto) 9.1 H (2.6-8.5) % Eos % (Auto) 1.3 (0-4.4) % Baso % (Auto) 0.5 (0.2-1.2) % Lymph # (Auto) 2.31 (0.9-3.2) K/mm3 Maries # (Auto) 0.9 H (0.1-0.6) K/mm3 Eos # (Auto) 0.1 (0-0.3) K/mm3 Baso # (Auto) 0.1 (0.0-0.1) K/mm3 Abs Immat Gran (auto) 0.15 H (0.00-0.031) K/mm3 Absolute Neuts (auto) 6.1 (1.3-6.7) K/mm3 Absolute Nucleated RBC 0.000 (0.0-0.012) K/mm3 Nucleated RBC % 0.0 (0.0-0.2) % Sodium 139 (137-145) mmol/L Potassium 3.5 (3.4-5.0) mmol/L Chloride 102 (98-107) mmol/L Carbon Dioxide 30 (22-30) mmol/L Anion Gap 7 (4-12) mmol/L BUN 19 H (7-17) mg/dL Creatinine 0.80 (0.7-1.0) mg/dL Estim Creat Clear Calc 53 ml/min Estimated GFR > 60 (59 - ) Glucose 98 (65-110) mg/dL Calcium 8.7 (8.4-10.2) mg/dL Total Bilirubin 0.8 (0.2-1.3) mg/dL AST 35 (14-36) U/L ALT 18 (6-35) U/L Alkaline Phosphatase 123 (38-126) U/L Total Protein 7.7 (6.3-8.2) g/dL Albumin 4.3 (3.5-5.1) g/dL Lipase 203 (23-300) U/L Urine Color Yellow (Yellow) Urine Appearance Cloudy H (Clear) Urine pH 6.0 (5.0-9.0) Ur Specific [place] 1.029 (1.001-1.035) Urine Protein 1+ H (Negative) mg/dL Urine Glucose (UA) Negative (Negative) mg/dL Urine Ketones Trace H (Negative) mg/dL Ur Blood (Man) Negative (Negative) Urine Nitrate Negative (Negative) Urine Bilirubin Negative (Negative) Urine Urobilinogen 1.0 (<2.0) mg/dL Leukocyte Esterase Rfl Trace H (Negative) CONNIE/UL Urine RBC 0-2 (0-2) /hpf Urine WBC 0-5 (0-3) /hpf Ur Squamous Epith Cells Moderate (Few) /hpf Urine Bacteria 1+ H /hpf Urine Casts 0-2 Imaging Data Radiologist's impression: Impressions Abdomen/Pelvis CT 07/03/25 09:02 IMPRESSION: 1. No etiology identified to explain the patient's symptoms. Follow-up suggested if symptoms persist. Discharge Plan Discharge Clinical Impression: Gastritis, Acute upper abdominal pain Patient Disposition: Home Condition: Stable Instructions: Antibiotic Form, Diet for Stomach Ulcers and Gastritis (ED), Abdominal Pain (ED) Additional Instructions: Continue your home pantoprazole. Avoid alcohol and avoid NSAIDs such as ibuprofen. Maalox as needed for intermittent gastric burning. Have close follow-up with GI. If you have any worsening symptoms then please call or return to the emergency department. Patient Language: Occitan Follow-up/Referrals: Susanna,RIMA Vivas [Primary Care Provider, Unknown] Song Acharya MD [Physician, Gastroenterology]
--- OUTSIDE RECORDS SUMMARY | 2025-07-03 08:35 | XMS_ITS | Clinical Summary ---
Author Organization [facility] Address [address] [address] Phone Care Team Providers Care Body Worker Name Role Phone Sangeetha Mullins NP Primary Care Provider [phone] Allergies Active Allergy Reactions Criticality Noted Date [...] 1 TABLET (75 MCG TOTAL) BY MOUTH BIKE MECHANIC BEFORE BREAKFAST 90 tablet 1 03/10/20 25 [...] Department Care Team Description 06/30/2025 Nurse Triage [address] [place] [phone] Sangeetha Mullins NP 06/28/2025 1:00 PM [facility] Office Visit [address] [place] [address] Sangeetha Mullins NP Acute cough (Primary Dx); BMI 29.0-29.9,adult; Acquired hypothyroidism 06/13/2025 Orders Only [address] [place] [phone] Sangeetha Mullins NP Mixed hyperlipidemia (Primary Dx); Hypertension, essential; Acquired hypothyroidism; Other fatigue; Annual physical exam; Screening for diabetes mellitus 06/09/[address] [place] [phone] Sangeetha Mullins NP Additional Services Or Orders [...] Comments Blood Pressure 136/84 06/28/2025 1:14 PM [facility] Pulse 76 06/28/2025 1:14 PM [facility] Temperature 36.7 C (98.1 F) 06/28/2025 1:14 PM [facility] Respiratory Rate - - Oxygen Saturation 97% 06/28/2025 1:14 PM [facility] Inhaled Oxygen Concentration - - Weight 67.1 kg (148 lb) 06/28/2025 1:14 PM [facility] Height 149.9 cm (4' 11) 06/28/2025 1:14 PM [facility] Body Mass Index 29.89 06/28/2025 1:14 PM [facility] Plan of Treatment Health Maintenance Due Date [...] A/B, COVID-19 ANTIGEN Routine 06/28/2025 1:24 PM [facility] Acute cough VITAMIN D 25 HYDROXY Routine [...] Read Routine (OP Routine) 10/26/2024 8:44 AM [facility] Breast cancer screening by mammogram PAP AND HPV, REFLEX TO HPV GENOTYPES Routine 01/15/2024 9:40 AM CDT Cervical cancer screening STOOL DNA COLOGUARD Routine 06/23/2023 5:30 AM CDT Screening for colon cancer from Last 3 Months or Most Recently Relevant to Health Maintenance Results * POC Influenza A/B, COVID-19 antigen (06/28/2025 1:24 PM [facility]) Pathologist [facility] Influenza A Ag, POC Negative Negative [facility] Influenza B Ag, POC Negative Negative [facility] COVID-19 Ag POC Presumptive Negative Presumptive Negative, Invalid [facility] Nasal 06/28/2025 1:24 PM [facility] us Sangeetha Mullins PRICING DIRECTOR POINT OF CARE TEST ORDERABLES Final Result [facility] [address] [place] [address] * Vitamin D 25 hydroxy (06/22/2025 7:32 [...] D, (D2,D3), LC/MS/MS is recommended: order code 39625 (patients >2yrs). See Note 1 Note 1 For additional information, please refer to http://education.Notion Systems.Scoop.it/faq/AYL532 (This link is being provided for informational/ educational purposes only.) Blood 06/22/2025 7:32 AM CDT 06/22/2025 7:33 AM CDT Narrative [facility] - 06/23/2025 12:07 PM CDT FASTING:YES FASTING: YES us Sangeetha Mullins PRICING DIRECTOR LAB BLOOD ORDERABLES Final Re sult [facility] [address] [address] * (ABNORMAL) CBC with auto differential (06/22/2025 [...] CDT FASTING:YES FASTING: YES Result Bryant Mullins PRICING DIRECTOR LAB BLOOD ORDERABLES Final Re sult Performing Organization Address [facility] Co de Phone Number [facility] [address] [place] [address] * (ABNORMAL) TSH (06/22/2025 7:29 AM CDT) Pathologist [facility] TSH 16.46(H) 0.40 - 4.50 mIU/L [facility] Blood 06/22/2025 7:29 AM CDT 06/22/2025 7:31 AM CDT Narrative [facility] - 06/22/2025 8:31 PM CDT FASTING:YES FASTING: YES Result Bryant Mullins PRICING DIRECTOR LAB BLOOD ORDERABLES Final Re sult Performing Organization Address [facility] de Phone Number [facility] [address] [place] [address] * (ABNORMAL) Hemoglobin A1c (06/22/2025 7:29 AM CDT) Pathologist [facility] Hgb A1C 5.9(H) <5.7 % of total Hgb [facility] Comment: For someone without known diabetes, a [...] CDT FASTING:YES FASTING: YES Result Bryant Mullins PRICING DIRECTOR LAB BLOOD ORDERABLES Final Re sult Performing Organization Address [facility] Co de Phone Number [facility] [employer] [address] [place] [address] * (ABNORMAL) Lipid panel (06/22/2025 7:29 AM CDT) Cholesterol 223(H) <200 mg/dL Yvonne Smart PipeVishal Thornton HDL 61 > OR = 50 mg/dL Yvonne Smart PipeVishal Thornton Triglycerides 227(H) <150 mg/dL Yvonne Smart PipeJanineS linda Thornton Comment: If a non-fasting specimen [...] LDL-C. Rhys PEREZ et al. SHMUEL. 2013;310(19): 2163-9538 (http://education.Cono-C/faq/NGH713) Chol/HDL ratio 3.7 <5.0 (calc) Yvonne Smart Pipe-Joseph linda Thornton Non-HDL, (LDL+VLDL) 162(H) <130 mg/dL (calc) Yvonne NetVisionS linda Thornton Comment: For patients with diabetes plus 1 major ASCVD risk factor, treating to a non-HDL-C goal of <100 mg/dL (LDL-C of <70 mg/dL) is considered a therapeutic option. Blood 06/22/2025 7:29 AM CDT 06/22/2025 7:31 AM CDT Narrative [facility] - 06/22/2025 8:31 PM CDT FASTING:YES FASTING: YES Sangeetha Mullins PRICING DIRECTOR LAB BLOOD ORDERABLES Final Re sult Performing Organization Address [facility] Co de Phone Number YVONNE [employer] [address] [place] [address] * Comprehensive metabolic panel (06/22/2025 7:29 AM CDT) Pathologist [facility] Glucose 87 65 - 99 mg/dL Yvonne NetVisionJoseph mckeon Norberto Comment: Fasting reference interval BUN 12 7 - 25 mg/dL Yvonne FantaJanineJoseph Thornton Creatinine 0.78 0.50 - 1.05 mg/dL Yvonne Smart PipeJanineJoseph Thornton eGFR 85 > OR = 60 mL/min/1.7 3m2 Yvonne NetVisionJoseph mckeon Norberto BUN/creat ratio SEE NOTE: 6 - 22 (calc) Yvonne Smart PipeJanineJoseph mckeon Norberto Comment: Not Reported: BUN and Creatinine are within reference range. Sodium 139 135 - 146 mmol/L Yvonne Smart PipeJoseph Thornton Potassium, pl 4.5 3.5 - 5.3 mmol/L Yvonne FantaJanineJoseph Thornton Chloride 105 98 - 110 mmol/L Yvonne FantaLexpliqueJoseph Thornton CO2 29 20 - 32 mmol/L Yvonne Smart Pipe-Joseph Thornton Calcium 9.3 8.6 - 10.4 mg/dL Yvonne Smart PipeJoseph Thornton Protein, sr 6.9 6.1 - 8.1 g/dL Yvonne FantaJoseph Thornton Albumin 4.5 3.6 - 5.1 g/dL Yvonne Smart Pipe-Joseph Thornton GLOBULIN 2.4 1.9 - 3.7 g/dL (calc) Yvonne Fanta-Joseph Thornton Alb/glob ratio 1.9 1.0 - 2.5 (calc) Yvonne NetVisionJoseph Thornton Bilirubin, total 0.5 0.2 - 1.2 mg/dL Yvonne Smart Pipe-Joseph Thortnon Alk phos 85 37 - 153 U/L Yvonne Smart PipeJoseph mckeon Norberto AST 17 10 - 35 U/L Yvonne Smart PipeJoseph Thornton ALT (SGPT) 17 6 - 29 U/L Yvonne NetVisionJoseph Thornton Blood 06/22/2025 7:29 AM CDT 06/22/2025 7:31 AM CDT Narrative [facility] - 06/22/2025 8:31 PM CDT FASTING:YES FASTING: YES us Sangeetha Mullins NP LAB BLOOD ORDERABLES Final Re sult YVONNE [facility] [address] [place] [address] * Screening Mammogram Bilateral W Jerald (10/26/2024 8:44 AM [facility]) Anatomical Region Laterality Modality Breast Bilateral Mammography Impressions 11/09/2024 2:55 PM CDT BI-RADS ATLAS category (overall): 1 - Negative There is no mammographic evidence of malignancy. A 1 year screening mammogram is recommended. The patient has been or will be contacted. We recommend annual screening mammography for women at average risk of breast cancer beginning at age 40, based on guidelines of the [place] [employer] (ACR Practice Parameter for the Performance of Screening and Diagnostic Mammography) and [place] [employer]. For women [...] Genotypes (01/15/2024 9:40 AM CDT) CLINICAL INFORMATION: Daily Secret [facility] Comment:Postmenopausal LMP [facility] Comment:POST MELISSA Previous Pap Daily Secret [facility] Comment:PREV NEG Prev. Bx [facility] Comment:None given SOURCE: [facility] Comment:Cervix, Endocervix Pap, specimen adequacy Daily Secret [facility] Comment: Satisfactory for evaluation. Endocervical/transformation zone component absent. HPV interp [facility] Comment: Cytology Results: Negative for intraepithelial lesion or malignancy. Infection: [facility] Comment: Shift in vaginal laisha suggestive of bacterial vaginosis. COMMENTS [facility] Comment: This Pap test has been evaluated with computer assisted technology. Clinical Program Director Pawel [facility] Comment: BKA, CT(ASCP) CT screening location: [place] [address] [address] [place] [address] Comment [facility] Comment: EXPLANATORY NOTE: The Pap is [...] High Risk E6/E7 Not Detected NOT DETECTED Daily Secret /Kaitlin HEARN Comment: Not Detected High Risk HPV types (16,18,31,33,35,39,45,51,52, 56,58,59,66,68) were not detected. Other HPV types which cause anogenital lesions may be present. The significance of the other types of HPV in malignant processes has not been established. Methodology: Real Time PCR Thin prep 01/15/2024 9:40 AM CDT 01/16/2024 2:38 AM CDT Sangeetha Mullins PRICING DIRECTOR LAB CYTOLOGY ORDERABLES Final Result [facility] [address] [place] [address] Daily Secret[facility] [address] [facility] NADIYA [place] [address] * Stool DNA - Cologuard (06/23/2023 5:30 AM CDT) Stool DNA - Cologuard Negative Negative [employer] (CLIA #:[id number]) Comment: NEGATIVE TEST RESULT. A negative Cologuard [...] Coelho et al, N Engl J Med 2014;370(14):4701-9495) The normal value (reference range) for this assay is negative. COLOGUARD RE-SCREENING RECOMMENDATION: Periodic colorectal cancer screening is an important part of preventive healthcare for asymptomatic individuals at average risk for colorectal cancer. Following a negative Cologuard result, the [place] [employer] and U.S. Multi-Society Task Force screening guidelines recommend a Cologuard re-screening interval of 3 years. References: [place] [employer] Guideline for Colorectal Cancer Screening: https://www.cancer.org/cancer/ouoae-oyhxbo-pdxpki/ppmpmuuuf-zfjezdrwz-piuyntw/ac s-rec ommendations.html.; Everett DK, Raul CR, Lebron SinghK, Colorectal Cancer Screening: Recommendations for Physicians and Patients from the U.S. Multi-Society Task Force on Colorectal Cancer Screening , Am J Gastroenterology 2017; 112:4340-3328. TEST DESCRIPTION: Composite algorithmic analysis of stool [...] (Kendra Farris al, N Engl J Med 2014;370(14):4352-9164.) Cologuard may produce a false negative or false positive result (no colorectal cancer or precancerous polyp present at colonoscopy follow up). A negative Cologuard test result does not guarantee the absence of CRC or advanced adenoma (pre-cancer). The current Cologuard screening interval is every 3 years. ([place] [employer] and U.S. Multi-Society Task Force). Cologuard performance data in a 10,000 patient pivotal study using colonoscopy as the reference method can be accessed at the following location: www.CommProve/results. Additional description of the Cologuard test process, warnings and precautions can be found at www.ProPlanogLaunchGramrd.com. Stool 06/23/2023 5:30 AM CDT 07/21/2023 11:30 AM [facility] us Sangeetha Mullins NP LAB BODY FLUIDS AND STOOLS OR DERABLES Final Result [employer] (CLIA #:[id number]) [address] [place] [address] from Last 3 Months or Most Recently Relevant to [place] [address] [place] [address] [employer] Care Teams Body Worker Relationship Specialty Start Date End Date Sangeetha Mullins NP [address] [place] [address] PCP - General Internal Medicine 06/09/23
--- OUTSIDE RECORDS SUMMARY | 2025-07-03 08:35 | XMS_ITS | Encounter Summary ---
Author Organization [facility] Healthcare Address [address] [place] [address] Care Team Providers Care Quick Service Technician Name Role Phone Sangeetha Mullins NP Primary Care Provider Reason for Visit * Reason Onset Date Comments Additional Services Or Orders 06/09/2025 Encounter Details Date Type Department Care Team (Late st Contact Info) Description 06/09/2025 Telephone [facility] Family Medicine [address] [place] [address] Sangeetha Mullins NP [address] [place] [address] Additional Services Or Orders Social [...] offacility): [facility] [address] , [place] [address] Additional Comments: None Does message need to be routed? 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
[2025-07-03] MEDS: LACTATED RINGERS 1,000 ML 999 ML IV CONT (08:40)
[2025-07-03] MEDS: KETOROLAC 30 MG/ML VIAL (*BKC) IV PUSH (08:41)
[2025-07-03] MEDS: BELLADONNA ALK/PHENOB ELIX 10 ML, MAG HYDROX/ALUMINUM HYD/SIMETH 30 ML, LIDOCAINE 2% VI... PO (08:41)
[2025-07-03] MEDS: METOCLOPRAMIDE HCL INJ 10 MG/2 ML VIAL IV PUSH (08:42)
[2025-07-03 10:28] VITALS: BP 106/74; PULSE 63; RESP 18; O2SAT 97
== END 2025-07-03 12:14 | disposition home or self-care (01) ==
PROVIDERS: Emergency Provider Emergency Medicine; PCP Nurse Practitioner Family
DX: K29.70 Gastritis, unspecified, without bleeding (principal); R10.10 Upper abdominal pain, unspecified
CPT/HCPCS: 36415; 74177; 80053; 81001; 83690; 85025; 93005; 96361; 96374; 96375; 99284; A9270; J1885; J2765; J7120; Q9967

== ENCOUNTER → 2025-07-13 09:23 | Outpatient (CLI) | payer BC, SELFPAY ==
--- NOTE | ~2025-07-13 | XR_ITS ---
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 Technique: 2 views obtained. Findings: The lungs are clear, no effusion. No pneumothorax. Heart is normal size. Mediastinal and hilar contours are within normal limits. Bony thorax no acute abnormality. Impression: No acute cardiopulmonary abnormality. Reviewed, dictated and finalized at location P. PS ENGINEER Impression: No acute cardiopulmonary abnormality.
== END ==
LOC: EXPCRAD 09:26
PROVIDERS: PCP Nurse Practitioner Family; Visit Provider Nurse Practitioner Family
DX: R05.1 Acute cough (principal); R09.89 Other specified symptoms and signs involving the circulatory and respiratory systems
CPT/HCPCS: 71046